=== PATIENT | female | born 1995 | race African-American/Black ===

== ENCOUNTER 2017-01-14 15:51 | Emergency (ER) | payer OTHER ==
[2017-01-14 15:53] LABS: INFLUENZA A NEG (NEG); INFLUENZA B NEG (NEG)
== END 2017-01-14 16:13 | disposition home or self-care (01) ==
LOC: CFTX 15:51
PROVIDERS: Nurse Practitioner Family
DX: R50.83 Postvaccination fever (principal)
CPT/HCPCS: 87804; 99283